=== PATIENT | male | born 1945 | race Two or more races ===

== ENCOUNTER 2016-12-12 20:45 | Inpatient (IN) | payer MEDICARE, OTHER ==
[~2016-12-12] VITALS: Ht 172.7 cm; Wt 72.6 kg
--- NOTE | 2016-12-12 21:22 | NUR ---
PT RICKI "FROM [facility] VIEW HERE FOR MEDICAL CLEARANCE FOR GPS; AGITATED" PT REFUSED TO ANSWER QUESTIONS. RR EVEN AND UNLABORED. NO SOB NOTED. NAD NOTED. NO NVD AT THIS TIME. PT GOWNED AND PLACED ON MONITOR WAITING FOR MD LUCERO.
[2016-12-12 21:25] LABS: BASOPHILS % (AUTO) 0.4 % (0.0-2.0); EOSINOPHILS % (AUTO) 3.3 % (0.0-6.0); HEMATOCRIT 40 % (39-51); HEMOGLOBIN 12.9 g/dL (13.5-17.5); LYMPHOCYTES % (AUTO) 21.2 % (20.0-44.0); MEAN CORPUSCULAR HEMOGLOBIN 29 PG (26.0-33.0); MEAN CORPUSCULAR HGB CONC 33 g/dl (31.0-36.0); MEAN CORPUSCULAR VOLUME 90 fL (80-96); MONOCYTES % (AUTO) 5.7 % (2.0-12.0); NEUTROPHILS % (AUTO) 69.4 % (43.0-81.0); PLATELET COUNT (AUTO) 191 /CMM (150-450); RDW COEFFICIENT OF VARIATION 14.4 (11.5-15.0); RED BLOOD CELL COUNT(AUTO) 4.41 MIL/uL (4.5-6.0); WHITE BLOOD COUNT (AUTO) 7.9 K/uL (4.3-11.0)
--- NOTE | 2016-12-12 21:25 | NUR ---
PAC KATIE AT BEST FOR EVAL.
[2016-12-12 21:26] LABS: EOSINOPHILS # (AUTO) 0.3 /CMM (0.0-0.7); LYMPHOCYTES # (AUTO) 1.7 /CMM (0.8-4.8); MONOCYTES # (AUTO) 0.5 /CMM (0.1-1.30); NEUTROPHILS # (AUTO) 5.4 /CMM (1.8-8.9)
[2016-12-12] MEDS ORDERED: LORAZEPAM INJ 2 MG/ML VIAL IV ONE (21:30)
[2016-12-12 21:36] LABS: CARBON DIOXIDE 27 mmol/L (21-32); CHLORIDE 109 mmol/L (98-107); CREATININE 0.9 mg/dL (0.6-1.3); GLUCOSE 109 mg/dL (74-106); POTASSIUM 4.1 mmol/L (3.5-5.1); SODIUM SERUM 145 mmol/L (136-145); UREA NITROGEN, BLOOD 19 mg/dL (7-18)
[2016-12-12 21:42] LABS: ALANINE AMINOTRANSFERASE 19 U/L (12-78); ALBUMIN 3.5 g/dL (3.4-5.0); ALKALINE PHOSPHATASE 114 U/L (46-116); ASPARTATE AMINOTRANSFERASE 18 U/L (15-37); BILIRUBIN,DIRECT 0.1 mg/dL (0.0-0.2); BILIRUBIN,TOTAL 0.3 mg/dL (0.2-1.0); TOTAL PROTEIN, SERUM 6.9 g/dL (6.4-8.2)
[2016-12-12 21:51] LABS: CALCIUM, SERUM 8.8 mg/dL (8.5-10.1)
[2016-12-12 21:53] LABS: ACETAMINOPHEN 0 ug/ml (10-30); ALCOHOL, BLOOD < 5 mg/dL (0-0)
[2016-12-12] MEDS ORDERED: LORAZEPAM INJ 2 MG/ML VIAL ONE (22:27)
--- NOTE | 2016-12-12 22:34 | NUR ---
URINE COLLECTED VIA IN N OUT CATH. CALLED LAB FOR EQUIPMENT TECHNICIAN
[2016-12-12 23:13] LABS: APPEARANCE,URINE CLEAR (CLEAR); BILIRUBIN,URINE NEGATIVE (NEGATIVE); BLOOD, URINE NEGATIVE Ery/uL (NEGATIVE); COLOR,URINE YELLOW (YELLOW); KETONES,URINE NEGATIVE (NEGATIVE); LEUKOCYTE ESTERASE ,URINE NEGATIVE (NEGATIVE); NITRITE, URINE NEGATIVE (NEGATIVE); PROTEIN,URINE NEGATIVE (NEGATIVE); UGLUCOSE NEGATIVE (NEGATIVE); UROBILINOGEN,URINE 0.2 EU/dL (0.2)
--- NOTE | 2016-12-13 00:01 | NUR ---
PT ASSIGNED TO [facility] 220-B
[2016-12-13] MEDS ORDERED: DOCU-25 PO (00:37)
[2016-12-13] MEDS ORDERED: CYAN10009 PO (00:38)
[2016-12-13] MEDS ORDERED: FOLI1TAB16 PO (00:40)
--- NOTE | 2016-12-13 00:42 | NUR ---
IV removed. Catheter intact and site benign. Pressure and 4x4 applied to site. No bleeding noted. [facility]
[2016-12-13] MEDS ORDERED: MULT1TAB73 PO (00:43)
[2016-12-13] MEDS ORDERED: POLY255P2 PO (00:44)
[2016-12-13 00:45] VITALS: BP 101/63
--- NOTE | 2016-12-13 00:45 | NUR ---
GPS ADMISSION NOTE, RECEIVED PATIENT FROM [facility] / E... PATIENT ARRIVED ON THIS UNIT AT 0045 VIA STRETCHER WITH 1 WATCH ADJUSTER ESCORT. PATIENT ADMITTED ON A 5150 HOLD FOR GD. PER HOLD PATIENT IS ALERT AND ORIENTED X 1, IS DISORGANIZED, CONFUSED, AND IS A POOR HISTORIAN. PER STAFF AT PATIENTS FACILITY PATIENT WAS STRIKING OUT AT STAFF AND NON-COMPLIANT WITH CARE DUE TO HIS AGGRESSIVE BEHAVIOR. THE 5150 WAS REVIEWED AND THE DOCUMENTATION IN THE 5150 HOLD APPEARS TO REFLECT THE PRESENTATION OF THE PATIENT. UPON FACE TO FACE ASSESSMENT PATIENT IS CURRENTLY LYING IN BED AWAKE, HAS NO S/S OR COMPLAINTS OF PAIN. PATIENT IS DISPLAYING NO S/S OF APPARENT DISTRESS. PATIENT BREATHING IS UNLABORED WITH EQUAL RISE AND FALL OF THE CHEST. PATIENT IS ALERT AND ORIENTATED X 1 ON ROOM AIR. PATIENT ASSISTED WITH TURING AND REPOSITIONING Q2HR AND PRN FOR COMFORT AND CIRCULATION. PATIENT HAS NO NEEDS AT THIS TIME. PATIENT IS NOTED TO BEING WITHDRAWN, DEPRESSED, DISHEVELED, DISORGANIZED, CONFUSED, UNCOOPERATIVE, MUTE, AND NEEDS REDIRECTION. PATIENT IS UNDER THE PSYCHIATRIC CARE OF DR. AKINS AND THE MEDICAL CARE OF DR DAVILA. PATIENT BELONGINGS WERE INVENTORIED AND CHECKED FOR CONTRABAND. ALL CONTRABAND REMOVED AND STORED IN PATIENT HALLWAY LOCKER. PATIENT ADVANCED DIRECTIVES PREFERENCE, IMMUNIZATIONS QUESTIONER, NECESSARY PAPERWORK, AND SKIN ASSESSMENT COMPLETED. PATIENT ORIENTATED TO ROOM, FLOOR, AND STAFF WITH ALL QUESTIONS ANSWERED. PATIENT EDUCATED ON THE USE OF THE CALL VALDEZ. PATIENT BED SIDE RAILS ARE UP X 2 FOR SAFETY. PATIENT BED IS LOCKED, LOW AND I WILL CONTINUE TO MONITOR THIS PATIENT Q 15 MIN WITH THE HELP OF STAFF TO MAINTAIN SAFETY.
[2016-12-13] MEDS ORDERED: MAG HYDROX/AL HYDROX/SIMETH 30 ML UDC PO PRN (01:00)
[2016-12-13] MEDS ORDERED: ACETAMINOPHEN 325 MG TABLET PO PRN (01:00)
[2016-12-13] MEDS ORDERED: LORAZEPAM 0.5 MG TABLET PO PRN (01:00)
[2016-12-13] MEDS ORDERED: MAGNESIUM HYDROXIDE 30 ML UDC PO PRN (01:00)
[2016-12-13] MEDS ORDERED: THIA100T74 PO (01:20)
[2016-12-13] MEDS ORDERED: DIVA125C PO (01:22)
[2016-12-13] MEDS ORDERED: QUET25TA PO (01:23)
[2016-12-13] MEDS ORDERED: METF500T4 PO (01:25)
[2016-12-13] MEDS ORDERED: LANS30CA56 PO (01:27)
[2016-12-13] MEDS ORDERED: ARMO250T4 PO (01:27)
[2016-12-13] MEDS ORDERED: INSULIN REGULAR, HUMAN 100 UNIT/ML 3 ML VIAL SQ PRN (02:00)
[2016-12-13] MEDS ORDERED: DEXTROSE 50%-WATER 50 ML DISP.SYRIN IV PRN (02:00)
[2016-12-13] MEDS ORDERED: Z GUARD REMEDY 2 OZ OINT TP PRN (06:00)
[2016-12-13 08:00] VITALS: BP 107/67
[2016-12-13 08:34] LABS: CREATININE 0.6 mg/dL (0.6-1.3)
[2016-12-13] MEDS: BLOOD SUGAR DIAGNOSTIC 1 EACH STRIP IN SCH ×4 (09:34→21:02)
[2016-12-13] MEDS: MULTIVITAMINS,THERAGRAN 1 UDTAB TABLET PO SCH (09:35)
[2016-12-13] MEDS: DOCUSATE SODIUM 100 MG CAPSULE PO SCH ×2 (09:35→16:57)
[2016-12-13] MEDS: PANTOPRAZOLE 40 MG TABLET.DR PO SCH (09:35)
[2016-12-13] MEDS: THIAMINE HCL 100 MG TABLET PO SCH (09:35)
[2016-12-13] MEDS: FOLIC ACID 1 MG TABLET PO SCH (09:35)
[2016-12-13] MEDS: METFORMIN 500 MG TABLET PO SCH ×2 (09:35→16:57)
[2016-12-13] MEDS: NICOTINE PATCH (14MG) 14 MG PATCH.TD24 TD SCH (09:36)
[2016-12-13] MEDS: CYANOCOBALAMIN 500 MCG TABLET PO SCH (09:36)
[2016-12-13] MEDS: POLYETHYLENE GLYCOL 3350 17 GM POWD.PACK PO SCH (09:40)
[2016-12-13] MEDS ORDERED: LIDOCAINE /MPF 1% VIAL 5 ML VIAL ONE (15:31)
[2016-12-13 16:00] VITALS: BP 111/61
[2016-12-13] MEDS: QUETIAPINE FUMARATE 25 MG TABLET PO SCH ×2 (16:57→21:06)
--- NOTE | 2016-12-13 18:37 | NUR ---
GPS SARINA ANTONY NOTES DAUGHTER ANDIE CALLED IN REGARDS TO PT.'S CONDITION. PER DAUGHTER, SHE IS THE PRIMARY CAREGIVER AND WISHES TO BE NOTIFIED OF ANY UPDATES OR CHANGES. HER CELL PHONE NUMBER IS [phone]. DAUGHTER WAS ALSO ASKED ABOUT NUVIGIL, A MEDICATION UNDER THE PT'S LISTED HOME MEDS WHICH OUR PHARMACY DOES NOT CARRY. DAUGHTER STATES THE SHE WILL FOLLOW UP AND CONTACT PT'S CARE FACILITY TO SEE IF SHE CAN GET IT.
--- NOTE | 2016-12-13 19:30 | NUR ---
GPS RN NOTE, RECEIVED PATIENT AWAKE AND IN BED, NO S/S OR COMPLAINTS OF PAIN AT THIS TIME. PATIENT IS DISPLAYING NO S/S OF APPARENT DISTRESS AT THIS TIME. PATIENT BREATHING IS UNLABORED WITH EQUAL RISE AND FALL OF THE CHEST. PATIENT IS ALERT AND ORIENTED X 1 ON ROOM AIR WITH A SPO2 97%. PATIENT COMPLAINT WITH MEDICATION, CONFUSED, MUTE AT TIMES, ANXIOUS, COOPERATIVE, FORGETFUL, GUARDED, SUSPICIOUS, AND NEEDS REORIENTATION. PATIENT DENIES SUICIDE AND HOMICIDAL IDEATIONS AT THIS TIME. PATIENT ASSISTED WITH TURNING AND REPOSITIONING Q2HR AND PRN FOR COMFORT AND CIRCULATION. PATIENT HAS NO NEEDS AT THIS TIME. PATIENT EDUCATED ON THE USE OF THE CALL VALDEZ. PATIENT BED SIDE RAILS UP X2 FOR SAFETY, BED IS LOCKED AND LOW WILL CONTINUE TO MONITOR AND MAINTAIN SAFETY.
[2016-12-13 20:00] VITALS: BP 99/77
--- NOTE | 2016-12-13 21:02 | NUR ---
GPS RN NOTE, PERFORMED ACCU-CHECK ON PATIENT WITH A BLOOD SUGAR RESULT OF 94. GAVE NO INSULIN PER SLIDING SCALE. WILL CONTINUE TO MONITOR THIS PATIENT.
[2016-12-13] MEDS: ZOLPIDEM TARTRATE 5 MG TABLET PO PRN (21:25)
--- NOTE | 2016-12-13 21:25 | NUR ---
GPS RN NOTE, PATIENT HAS A COMPLAINT OF NOT BEING ABLE TO SLEEP AND WOULD LIKE A SLEEPING AID AT THIS TIME. PATIENT VITAL SIGNS ARE STABLE. GAVE AMBIEN 5MG PO HS ORDERED. WILL REASSESS FOR INSOMNIA AND I WILL CONTINUE TO MONITOR THIS PATIENT.
[2016-12-14] MEDS: BLOOD SUGAR DIAGNOSTIC 1 EACH STRIP IN SCH ×4 (07:57→21:48)
[2016-12-14 08:00] VITALS: BP 110/67
[2016-12-14] MEDS ORDERED: ARMODAFINIL 200 MG PO SCH (09:00)
[2016-12-14] MEDS: CYANOCOBALAMIN 500 MCG TABLET PO SCH (09:18)
[2016-12-14] MEDS: METFORMIN 500 MG TABLET PO SCH ×2 (09:18→17:02)
[2016-12-14] MEDS: FOLIC ACID 1 MG TABLET PO SCH (09:18)
[2016-12-14] MEDS: QUETIAPINE FUMARATE 25 MG TABLET PO SCH ×3 (09:19→21:46)
[2016-12-14] MEDS: DOCUSATE SODIUM 100 MG CAPSULE PO SCH ×2 (09:19→17:02)
[2016-12-14] MEDS: THIAMINE HCL 100 MG TABLET PO SCH (09:19)
[2016-12-14] MEDS: PANTOPRAZOLE 40 MG TABLET.DR PO SCH (09:19)
[2016-12-14] MEDS: MULTIVITAMINS,THERAGRAN 1 UDTAB TABLET PO SCH (09:19)
[2016-12-14] MEDS: NICOTINE PATCH (14MG) 14 MG PATCH.TD24 TD SCH (09:19)
[2016-12-14] MEDS: POLYETHYLENE GLYCOL 3350 17 GM POWD.PACK PO SCH (09:20)
--- NOTE | 2016-12-14 14:48 | NUR ---
Initial discharge plan: Pt. resides at [facility] [address], [place] [address] but per Bev from the facility, they are unable to accept the patient due to level of care. RONNI spoke with pt's daughter, Christie [phone] who agrees with pt. being placed in a closer facility to [place]. SW called Aleksandr, (the other daughter) who did not berry picker and voicemail was not set up. SW will work with family to find a more appropriate facility and will help form safe and proper discharge.
--- NOTE | 2016-12-14 19:43 | NUR ---
GPS RN NOTES RECEIVED SITTING ON UMBERTO CHAIR IN THE DINING ROOM.APPEARS DEPRESSED AND ISOLATED.MED COMPLAINT WITH CRUSHED MEDS.NOTED MULTIPLE DRY SMALL WOUNDS,NO DISCHARGES.FALL RISK PRECAUTION OBSERVED.WILL CONTINUE TO MONITOR BEHAVIOR
[2016-12-14 20:00] VITALS: BP 107/75
--- NOTE | 2016-12-14 22:00 | NUR ---
GPS RN NOTES ACCU-CHECK BLOOD SUGAR CHECK 97,NO INSULIN COVERAGE.DUE PO MEDS GIVEN WITH APPLE SAUCE,TAKEN WELL.
[2016-12-15 08:00] VITALS: BP 100/58
[2016-12-15] MEDS: BLOOD SUGAR DIAGNOSTIC 1 EACH STRIP IN SCH ×4 (08:00→21:44)
--- NOTE | 2016-12-15 08:43 | NUR ---
GPS RN NOTE: PATIENT IN THE ROOM ASLEEP NO S/S DISTRESS NOTED RESPIRATION EVEN NON LABORED, CALL LIGHT AT THE REACH, BED IN LOWER POSITION PATIENT BS 145 MG/DL PATIENT REFUSED TO EAT INSULIN COVERAGE NOT GIVEN, MEDICATIONS HOLD PATIENT REFUSED TO WAKE UP WILL CONTINUE MONITORING FOR SAFETY AND BEHAVIOR Q 15 MIN
[2016-12-15] MEDS: QUETIAPINE FUMARATE 25 MG TABLET PO SCH ×3 (11:13→21:44)
[2016-12-15] MEDS: THIAMINE HCL 100 MG TABLET PO SCH (11:13)
[2016-12-15] MEDS: PANTOPRAZOLE 40 MG TABLET.DR PO SCH (11:13)
[2016-12-15] MEDS: DOCUSATE SODIUM 100 MG CAPSULE PO SCH ×2 (11:13→16:06)
[2016-12-15] MEDS: CYANOCOBALAMIN 500 MCG TABLET PO SCH (11:14)
[2016-12-15] MEDS: METFORMIN 500 MG TABLET PO SCH ×2 (11:14→16:06)
[2016-12-15] MEDS: POLYETHYLENE GLYCOL 3350 17 GM POWD.PACK PO SCH (11:14)
[2016-12-15] MEDS: MULTIVITAMINS,THERAGRAN 1 UDTAB TABLET PO SCH (11:14)
[2016-12-15] MEDS: NICOTINE PATCH (14MG) 14 MG PATCH.TD24 TD SCH (11:14)
[2016-12-15] MEDS: FOLIC ACID 1 MG TABLET PO SCH (11:14)
[2016-12-15 16:15] VITALS: BP 131/85
[2016-12-15 20:00] VITALS: BP 136/62
[2016-12-15] MEDS: ZOLPIDEM TARTRATE 5 MG TABLET PO PRN (21:44)
[2016-12-16 08:00] VITALS: BP 101/61
[2016-12-16] MEDS: THIAMINE HCL 100 MG TABLET PO SCH (08:06)
[2016-12-16] MEDS: NICOTINE PATCH (14MG) 14 MG PATCH.TD24 TD SCH (08:06)
[2016-12-16] MEDS: METFORMIN 500 MG TABLET PO SCH ×2 (08:06→16:03)
[2016-12-16] MEDS: PANTOPRAZOLE 40 MG TABLET.DR PO SCH (08:06)
[2016-12-16] MEDS: DOCUSATE SODIUM 100 MG CAPSULE PO SCH ×2 (08:06→16:03)
[2016-12-16] MEDS: POLYETHYLENE GLYCOL 3350 17 GM POWD.PACK PO SCH (08:06)
[2016-12-16] MEDS: QUETIAPINE FUMARATE 25 MG TABLET PO SCH ×3 (08:06→21:46)
[2016-12-16] MEDS: CYANOCOBALAMIN 500 MCG TABLET PO SCH (08:06)
[2016-12-16] MEDS: BLOOD SUGAR DIAGNOSTIC 1 EACH STRIP IN SCH ×4 (08:07→22:07)
[2016-12-16] MEDS: FOLIC ACID 1 MG TABLET PO SCH (08:07)
[2016-12-16] MEDS: MULTIVITAMINS,THERAGRAN 1 UDTAB TABLET PO SCH (08:18)
[2016-12-16 16:26] VITALS: BP 120/69
[2016-12-16 20:22] VITALS: BP 97/49
--- NOTE | 2016-12-17 01:44 | NUR ---
Pt has been quite fragmented, confused, blunted, difficult to redirect, refusing care, & unpredictable.
--- NOTE | 2016-12-17 01:46 | NUR ---
Pt's blood sugar level last night was 130 mg/dl & no Insulin was given per MD order.
[2016-12-17] MEDS: BLOOD SUGAR DIAGNOSTIC 1 EACH STRIP IN SCH ×4 (07:29→22:14)
[2016-12-17] MEDS: PANTOPRAZOLE 40 MG TABLET.DR PO SCH (07:55)
[2016-12-17 08:00] VITALS: BP 100/58
[2016-12-17] MEDS: QUETIAPINE FUMARATE 25 MG TABLET PO SCH ×4 (08:00→22:15)
[2016-12-17] MEDS: METFORMIN 500 MG TABLET PO SCH ×2 (08:00→16:54)
[2016-12-17] MEDS: DOCUSATE SODIUM 100 MG CAPSULE PO SCH ×2 (08:00→16:54)
[2016-12-17] MEDS: MULTIVITAMINS,THERAGRAN 1 UDTAB TABLET PO SCH (08:00)
[2016-12-17] MEDS: CYANOCOBALAMIN 500 MCG TABLET PO SCH (08:00)
[2016-12-17] MEDS: THIAMINE HCL 100 MG TABLET PO SCH (08:00)
[2016-12-17] MEDS: NICOTINE PATCH (14MG) 14 MG PATCH.TD24 TD SCH (08:00)
[2016-12-17] MEDS: FOLIC ACID 1 MG TABLET PO SCH (08:00)
[2016-12-17] MEDS: POLYETHYLENE GLYCOL 3350 17 GM POWD.PACK PO SCH (08:00)
--- NOTE | 2016-12-17 14:12 | NUR ---
RONNI faxed a referral to [facility], [place] [address] [place], [place] [id number] . Will follow up Addendum: 12/18/16 at 1534 by LUIS ANGEL RUDOLPH Per Pari from the facility, pt cannot be admitted due to his behavior at the previous facility.
[2016-12-17 16:00] VITALS: BP 124/55
[2016-12-17 19:55] VITALS: BP 150/80
--- NOTE | 2016-12-17 22:14 | NUR ---
GPS RN NOTE, PERFORMED ACCU-CHECK ON PATIENT WITH A BLOOD SUGAR RESULT OF 110. GAVE NO INSULIN PER SLIDING SCALE. WILL CONTINUE TO MONITOR THIS PATIENT.
[2016-12-17] MEDS: ZOLPIDEM TARTRATE 5 MG TABLET PO PRN (22:15)
[2016-12-18] MEDS: BLOOD SUGAR DIAGNOSTIC 1 EACH STRIP IN SCH ×4 (07:28→22:15)
[2016-12-18] MEDS: THIAMINE HCL 100 MG TABLET PO SCH (08:08)
[2016-12-18] MEDS: NICOTINE PATCH (14MG) 14 MG PATCH.TD24 TD SCH (08:08)
[2016-12-18] MEDS: CYANOCOBALAMIN 500 MCG TABLET PO SCH (08:08)
[2016-12-18] MEDS: DOCUSATE SODIUM 100 MG CAPSULE PO SCH ×2 (08:08→16:57)
[2016-12-18] MEDS: POLYETHYLENE GLYCOL 3350 17 GM POWD.PACK PO SCH (08:08)
[2016-12-18] MEDS: PANTOPRAZOLE 40 MG TABLET.DR PO SCH (08:08)
[2016-12-18] MEDS: QUETIAPINE FUMARATE 25 MG TABLET PO SCH ×4 (08:08→22:13)
[2016-12-18] MEDS: METFORMIN 500 MG TABLET PO SCH ×2 (08:08→16:57)
[2016-12-18] MEDS: FOLIC ACID 1 MG TABLET PO SCH (08:09)
[2016-12-18] MEDS: MULTIVITAMINS,THERAGRAN 1 UDTAB TABLET PO SCH (08:09)
--- NOTE | 2016-12-18 15:34 | NUR ---
Pt. was referred and accepted to [facility] [address], [place] [address] per Maggi from admission.
--- NOTE | 2016-12-18 15:37 | NUR ---
RONNI spoke with pt's daughter, Christie [phone] and notified her of pt's acceptance to [facility] [address], [place] [address] . Christie would like a closer facility but she was informed that [facility] is the only facility accepting at this time and she agreed if there is no other facility by the time pt. is ready for discharge, she is okay for pt. to be discharged there.
--- NOTE | 2016-12-18 15:50 | NUR ---
SW sent a referral to [facility] [address], [place], [place] [id number] , [facility] [address] [place] [address] and [facility] [address] [place] [address] . Will follow up.
[2016-12-18 16:00] VITALS: BP 114/69
[2016-12-18 20:20] VITALS: BP 122/64
[2016-12-18] MEDS: ZOLPIDEM TARTRATE 5 MG TABLET PO PRN (22:13)
[2016-12-19 08:00] VITALS: BP 120/70
[2016-12-19] MEDS: BLOOD SUGAR DIAGNOSTIC 1 EACH STRIP IN SCH ×4 (08:38→22:06)
[2016-12-19] MEDS: METFORMIN 500 MG TABLET PO SCH ×2 (08:39→17:00)
--- NOTE | 2016-12-19 08:40 | NUR ---
blood sugar low so glucophage held.
[2016-12-19] MEDS: QUETIAPINE FUMARATE 25 MG TABLET PO SCH ×4 (09:00→21:41)
[2016-12-19] MEDS: PANTOPRAZOLE 40 MG TABLET.DR PO SCH (10:15)
[2016-12-19] MEDS: FOLIC ACID 1 MG TABLET PO SCH (10:15)
[2016-12-19] MEDS: POLYETHYLENE GLYCOL 3350 17 GM POWD.PACK PO SCH (10:16)
[2016-12-19] MEDS: THIAMINE HCL 100 MG TABLET PO SCH (10:16)
[2016-12-19] MEDS: NICOTINE PATCH (14MG) 14 MG PATCH.TD24 TD SCH (10:16)
[2016-12-19] MEDS: DOCUSATE SODIUM 100 MG CAPSULE PO SCH ×2 (10:16→18:14)
[2016-12-19] MEDS: CYANOCOBALAMIN 500 MCG TABLET PO SCH (10:16)
[2016-12-19] MEDS: MULTIVITAMINS,THERAGRAN 1 UDTAB TABLET PO SCH (10:19)
[2016-12-19 16:00] VITALS: BP 124/84
--- NOTE | 2016-12-19 19:06 | NUR ---
GLUCOPHAGE HELD THIS SANTINO. BGL STILL LOW.PT. IS EATING.DR. MENESES,DR. AKINS IN TO SEE PT.
[2016-12-19] MEDS: ZOLPIDEM TARTRATE 5 MG TABLET PO PRN (21:41)
[2016-12-19 21:53] VITALS: BP 140/72
[2016-12-20] MEDS: PANTOPRAZOLE 40 MG TABLET.DR PO SCH ×2 (07:30→12:28)
[2016-12-20] MEDS: BLOOD SUGAR DIAGNOSTIC 1 EACH STRIP IN SCH ×4 (07:44→21:43)
[2016-12-20 08:00] VITALS: BP 100/57
[2016-12-20] MEDS: FOLIC ACID 1 MG TABLET PO SCH ×2 (09:00→12:28)
[2016-12-20] MEDS: METFORMIN 500 MG TABLET PO SCH ×2 (09:00→17:21)
[2016-12-20] MEDS: DOCUSATE SODIUM 100 MG CAPSULE PO SCH ×2 (09:00→17:21)
[2016-12-20] MEDS: QUETIAPINE FUMARATE 25 MG TABLET PO SCH ×4 (09:00→21:06)
[2016-12-20] MEDS: POLYETHYLENE GLYCOL 3350 17 GM POWD.PACK PO SCH ×2 (09:00→12:35)
[2016-12-20] MEDS: CYANOCOBALAMIN 500 MCG TABLET PO SCH ×2 (09:00→12:28)
[2016-12-20] MEDS: NICOTINE PATCH (14MG) 14 MG PATCH.TD24 TD SCH ×2 (09:00→12:28)
[2016-12-20] MEDS: MULTIVITAMINS,THERAGRAN 1 UDTAB TABLET PO SCH ×2 (09:00→12:28)
[2016-12-20] MEDS: THIAMINE HCL 100 MG TABLET PO SCH ×2 (09:00→12:29)
[2016-12-20 16:00] VITALS: BP 119/79
--- NOTE | 2016-12-20 19:56 | NUR ---
GPS/RN NOTE: PATIENT AWAKE, ALERT, VERY CONFUSED. NO ACUTE DISTRESS NOTED.
[2016-12-20 20:00] VITALS: BP 96/69
[2016-12-20] MEDS: ZOLPIDEM TARTRATE 5 MG TABLET PO PRN (21:07)
--- NOTE | 2016-12-20 21:07 | NUR ---
GPS/RN NOTE: PATIENT CONFUSED, PICKS ON HIS GOWN, REMOVED HIS CLOTHING. AMBIEN 5 MG TAB PO GIVEN.
--- NOTE | 2016-12-20 21:47 | NUR ---
GPS/RN NOTE: ACCHECK 104 MG/DL, NO INSULIN DUE AT THIS TIME.
[2016-12-21] MEDS: BLOOD SUGAR DIAGNOSTIC 1 EACH STRIP IN SCH ×3 (07:45→16:42)
[2016-12-21 08:00] VITALS: BP 146/77
[2016-12-21] MEDS: MULTIVITAMINS,THERAGRAN 1 UDTAB TABLET PO SCH (08:32)
[2016-12-21] MEDS: CYANOCOBALAMIN 500 MCG TABLET PO SCH (08:32)
[2016-12-21] MEDS: METFORMIN 500 MG TABLET PO SCH ×2 (08:32→16:42)
[2016-12-21] MEDS: NICOTINE PATCH (14MG) 14 MG PATCH.TD24 TD SCH (08:32)
[2016-12-21] MEDS: DOCUSATE SODIUM 100 MG CAPSULE PO SCH ×2 (08:32→16:42)
[2016-12-21] MEDS: POLYETHYLENE GLYCOL 3350 17 GM POWD.PACK PO SCH (08:32)
[2016-12-21] MEDS: QUETIAPINE FUMARATE 25 MG TABLET PO SCH ×3 (08:33→16:42)
[2016-12-21] MEDS: THIAMINE HCL 100 MG TABLET PO SCH (08:33)
[2016-12-21] MEDS: FOLIC ACID 1 MG TABLET PO SCH (08:33)
[2016-12-21] MEDS: PANTOPRAZOLE 40 MG TABLET.DR PO SCH (08:33)
--- NOTE | 2016-12-21 08:55 | NUR ---
DR. AKINS GAVE AN ORDER TO D/C HOLD AND D/C TO [facility]. PT. WITHOUT DISTRESS, DENIES SUICIDAL AND HOMICIDAL AND TO FOLLOW UP WITH PSYCH AND MEDICAL DOCTORS.
--- NOTE | 2016-12-21 15:17 | NUR ---
GPS RN: REPORT GIVEN TO THE RN PAPER FOLDER AT [facility] [[address], [place] [address], ]. FACILITY ARRANGED THE TRANSPORTATION AND PATIENT WILL BE PICKED UP AT 7PM. PATIENT'S CONDITION IS STABLE AT THIS TIME, VS STABLE, PATIENT IS CALM AND QUIET, RESTING COMFORTABLY IN BED. ALL NEEDS ATTENDED AND ANTICIPATED, KEPT CLEAN AND COMFORTABLE, WILL CONTINUE TO MONITOR THE PATIENT.
[2016-12-21 16:00] VITALS: BP 120/60
--- NOTE | 2016-12-21 16:24 | NUR ---
Discharge note: discharge to [facility] [address], [place] [address] at 7:00PM. Facility arranged transportation for pt's bulk picker with [facility] [phone]. DaughterChristie [phone] is notified and agreed with the discharge plan. Pt. is calm and cooperative, denies suicidal and homicidal ideations. Pt. still appears confused. SW signed discharge paperwork and discharge instructions will be provided to the accepting facility.
--- NOTE | 2016-12-21 19:18 | NUR ---
GPS/RN NOTE: PATIENT IS FOR DISCHARGE TO [facility]. AWAITING PICK-UP TONIGHT.
--- NOTE | 2016-12-21 19:20 | NUR ---
GPS/RN NOTE: PATIENT IS SITTING ON THE UMBERTO-CHAIR, REMAINS CONFUSED. NO ACUTE DISTRESS NOTED.
--- NOTE | 2016-12-21 20:42 | NUR ---
GPS/RN NOTE: PATIENT DISCHARGED TO [facility] VIA AMBULANCE, ACCOMPANIED BY 2 MALE PARAMEDICS FROM [facility]. PATIENT IS ALERT, ORIENTED X1, REMAINS CONFUSED. STABLE CONDITION. REPORT GIVEN.
== END 2016-12-21 20:52 | DRG 885 ==
LOC: ER 20:47 → GPS 12-13 00:27
PROVIDERS: ADMIT Psychiatry & Neurology Psychiatry; ATTEND Psychiatry & Neurology Psychiatry
DX: F29 Unspecified psychosis not due to a substance or known physiological condition (principal); I69.159 Hemiplegia and hemiparesis following nontraumatic intracerebral hemorrhage affecting unspecified side; R47.01 Aphasia; F03.90 Unspecified dementia, unspecified severity, without behavioral disturbance, psychotic disturbance, mood disturbance, and anxiety; E11.9 Type 2 diabetes mellitus without complications; F31.9 Bipolar disorder, unspecified; F41.9 Anxiety disorder, unspecified; I10 Essential (primary) hypertension; K21.9 Gastro-esophageal reflux disease without esophagitis; Z79.899 Other long term (current) drug therapy; F39 Unspecified mood [affective] disorder
CPT/HCPCS: 36415; 80048-TC; 80061-TC; 80076-TC; 80305; 81000-TC; 82565-TC; 82962-TC; 85025-TC; 87081-TC; 97001-TC; A4606; G0480; J1815; J2060; J3490; Z7610